=== PATIENT | female | born 1950 | race Caucasian/White ===

== ENCOUNTER 2019-08-21 03:39 | Emergency (ER) | payer MEDICARE ==
[2019-08-21] MEDS ORDERED: Aspirin Chewable 81 MG TAB ONE (03:57)
[2019-08-21 04:11] LABS: #Basophils 0.1 thou/uL (0.0-0.2); #Eosinphils 0.4 thou/uL (0.0-0.7); #Lymphocytes 2.1 thou/uL (1.20-3.40); #Monocytes 0.6 thou/uL (0.11-0.59); #Neutrophils 1.6 thou/uL (1.40-6.50); %Basophils 1.8 % (0.0-1.0); %Eosinophils 7.8 % (0.0-10.0); %Lymphocytes 44.2 % (21.0-51.0); %Monocytes 12.4 % (0.0-10.0); %Neutrophils 33.8 % (42.0-75.0); Hemoglobin 13.8 g/dL (12.0-16.0); Mean Corpuscular HGB CONC 33.6 g/dL (32.0-36.0); Mean Corpuscular Hemoglobin 29.4 pg (27.0-31.0); Mean Corpuscular Volume 87.4 fL (78.0-98.0); Mean Platelet Volume 8.5 fL (7.4-10.4); Platelet Count 221 thou/uL (130-400); RBC Distribution Width 11.6 % (11.5-14.5); White Blood Cell (WBC) Count 4.7 thou/uL (4.8-10.8)
[2019-08-21 04:30] LABS: CKMB 0.5 ng/mL (0-6.6)
[2019-08-21 04:36] LABS: ALT (SGPT) 16 U/L (8-55); AST (SGOT) 19 U/L (5-34); Albumin 3.7 g/dL (3.4-4.8); Alkaline Phosphatase 91 U/L (40-110); Anion Gap 14 mmol/L (10-20); BUN (Urea Nitrogen) 19 mg/dL (9.8-20.1); Bilirubin, Total 0.5 mg/dL (0.2-1.2); CK (CPK) 36 U/L (29-168); Calc. Creatinine Clearance 0 mL/min (70-130); Calcium 9.4 mg/dL (7.8-10.44); Carbon Dioxide 22 mmol/L (23-31); Chloride 110 mmol/L (98-107); Estimated GFR-MDRD 58; Globulin 3.5 g/dL (2.4-3.5); Glucose 86 mg/dL (80-115); Lipase 52 U/L (8-78); Potassium 3.9 mmol/L (3.5-5.1); Protein, Total 7.2 g/dL (6.0-8.3); Sodium 142 mmol/L (136-145)
--- NOTE | 2019-08-21 08:02 | RAD ---
Exam: Chest one view HISTORY:Chest pain. Comparison: None. FINDINGS: Cardiac silhouette:Upper normal heart size. Aorta: Unremarkable Pulmonary vessels: Normal Costophrenic angles: Clear LUNGS: Lungs are hyperinflated. Overpenetration of the upper lobes limiting evaluation. Patchy inters titial opacities may represent chronic change. Pneumothorax: None Osseous abnormalities: None IMPRESSION: 1. Hyperinflation. 2. Increased interstitial opacities may represent chronic change.
== END 2019-08-21 05:04 | disposition left against medical advice (07) ==
LOC: BURERS 03:39
DX: R07.2 Precordial pain (principal)
CPT/HCPCS: 71045; 80053; 82550; 82553; 83690; 83880; 84484; 85025; 85379; 93005